=== PATIENT | female | born 1985 | race Caucasian/White ===

== ENCOUNTER 2017-06-23 10:54 | Day surgery (SDC) | payer OTHER ==
[2017-06-23] MEDS ORDERED: LIDOCAINE HCL 1% 50 MG/5 ML SOL INJ ONE (12:56)
[2017-06-23] MEDS ORDERED: BUPIVACAINE HCL INJ ONE (13:16)
[2017-06-23 13:36] VITALS: BP 139/88; PULSE 83; RESP 20; TEMP 97.3; O2SAT 100
== END 2017-06-23 13:56 | disposition home or self-care (01) | DRG 566 ==
LOC: SURG 10:54
PROVIDERS: ATTEND Podiatrist
DX: M24.074 Loose body in right toe joint(s) (principal)
CPT/HCPCS: A6402